=== PATIENT | male | born 1950 ===

== ENCOUNTER 2018-07-25 11:21 | Outpatient (CLI) | payer OTHER ==
[~2018-07-25] VITALS: Ht 182.9 cm; Wt 97.5 kg
== END 2018-07-25 11:40 | disposition home or self-care (01) ==
LOC: OFIC 805 11:21
DX: R09.81 Nasal congestion (principal); J34.2 Deviated nasal septum; K21.0 Gastro-esophageal reflux disease with esophagitis; G47.33 Obstructive sleep apnea (adult) (pediatric); J34.3 Hypertrophy of nasal turbinates